=== PATIENT | female | born 1990 | race Caucasian/White ===

== ENCOUNTER 2017-06-04 03:45 | Inpatient (IN) | payer BC ==
[2017-06-04] MEDS ORDERED: Lidocaine 1% 50 ML MDV INJECT PRN (05:01)
[2017-06-04] MEDS ORDERED: Sodium Chloride 0.9% 2.5 ML Syringe FLUSH PRN (05:01)
[2017-06-04] MEDS ORDERED: Carboprost Tromethamine 250 MCG/1 ML Amp IM PRN (05:01)
[2017-06-04] MEDS ORDERED: Methylergonovine 0.2 MG/1 ML Amp IM PRN (05:01)
[2017-06-04] MEDS ORDERED: Butorphanol 1 MG/ML SDV IVPUSH PRN (05:01)
[2017-06-04] MEDS ORDERED: Water For Irrigation,Sterile 1,000 ML Container IRR PRN (05:01)
[2017-06-04] MEDS ORDERED: Sodium Chloride 0.9% 10 ML Syringe FLUSH PRN (05:01)
[2017-06-04] MEDS ORDERED: Nalbuphine 10 MG/1 ML Vial IVPUSH PRN (05:01)
[2017-06-04] MEDS ORDERED: Misoprostol 200 MCG Tab PO PRN (05:01)
[2017-06-04] MEDS ORDERED: Oxytocin/0.9 % Sodium Chloride 30 UNIT/500 ML BAG IV SCH ×2 (05:15→07:30)
[2017-06-04] MEDS ORDERED: Terbutaline 1 MG/ML SDV SUBCUT PRN (07:25)
[2017-06-04] MEDS: Lactated Ringers 1,000 ML IV SCH ×4 (08:00→18:50)
[2017-06-04] MEDS ORDERED: Oxytocin/Normal Saline 30 UNIT/500 ML BAG ONE ×2 (08:01→23:49)
--- NOTE | 2017-06-04 14:58 | PCM.PREANE ---
Preanesthetic Assessment - Anesthesia/Transfusion/Family Hx Anesthesia History: No Prior Anesthesia Transfusion History: No Prior Transfusion(s) - Review of Systems General: No Symptoms Pulmonary: No Symptoms Cardiovascular: No Symptoms Gastrointestinal: No Symptoms Neurological: No Symptoms Other: Reports: None - Physical Assessment Height: 5 ft 3 in Weight: 71.214 kg ASA Class: 2 Mental Status: Alert & Oriented x3 Airway Class: Mallampati = 2 Dentition: Reports: Normal Dentition Thyro-Mental Finger Breadths: 3 Mouth Opening Finger Breadths: 3 ROM/Head Extension: Full Lungs: Clear to Auscultation, Normal Respiratory Effort Cardiovascular: Regular Rate, Regular Rhythm - Lab Values: Laboratory Last Values WBC 12.94 K/uL (4.0-11.0) H 06/04/17 05:13 RBC 4.09 M/uL (4.30-5.90) L 06/04/17 05:13 Hgb 13.0 g/dL (12.0-16.0) 06/04/17 05:13 Hct 37.9 % (36.0-46.0) 06/04/17 05:13 MCV 92.7 fL (80.0-98.0) 06/04/17 05:13 MCH 31.8 pg (27.0-32.0) 06/04/17 05:13 MCHC 34.3 g/dL (31.0-37.0) 06/04/17 05:13 RDW Std Deviation 49.0 fl (28.0-62.0) 06/04/17 05:13 RDW Coeff of Dianna 15 % (11.0-15.0) 06/04/17 05:13 Plt Count 182 K/uL (150-400) 06/04/17 05:13 MPV 11.10 fL (7.40-12.00) 06/04/17 05:13 Nucleated RBC % 0.0 /100WBC 06/04/17 05:13 Nucleated RBCs # 0 K/uL 06/04/17 05:13 Blood Type O POSITIVE 06/04/17 05:13 Antibody Screen NEGATIVE 06/04/17 05:13 - Allergies Allergies/Adverse Reactions: Allergies Allergy/AdvReac Type Severity Reaction Status Date / Time No Known Allergies Allergy Verified 06/04/17 05:00 - Acknowledgements Anesthesia Type Planned: Epidural Pt an Appropriate Candidate for the Planned Anesthesia: Yes Alternatives and Risks of Anesthesia Discussed w Pt/Guardian: Yes Pt/Guardian Understands and Agrees with Anesthesia Plan: Yes PreAnesthesia Questionnaire - Past Health History Medical/Surgical History: Denies Medical/Surgical History HEENT History: Reports: None Cardiovascular History: Reports: None Respiratory History: Reports: None Gastrointestinal History: Reports: GERD Genitourinary History: Reports: None IT RISK ADVISOR History: Reports: : 1 Para: 0 LMP (Approximate): Musculoskeletal History: Reports: None Neurological History: Reports: None Psychiatric History: Reports: None Endocrine/Metabolic History: Reports: None Hematologic History: Reports: None Immunologic History: Reports: None Oncologic (Cancer) History: Reports: None Dermatologic History: Reports: None - Infectious Disease History Infectious Disease History: Reports: None - SUBSTANCE USE Smoking Status *Q: Never Smoker Second Hand Smoke Exposure: No Recreational Drug Use History: No - CURRENT (IN HOUSE) MEDS Current Meds: Current Medications Butorphanol Tartrate (Stadol) 1 mg IVPUSH ASDIRECTED PRN PRN Reason: Pain Carboprost Tromethamine (Hemabate Ds) 250 mcg IM ASDIRECTED PRN PRN Reason: Post Hemorrhage Lactated Ringer's (Ringers, Lactated) 1,000 mls @ 150 mls/hr IV ASDIRECTED CUATE Last Admin: 06/04/17 08:00 Dose: 150 mls/hr Oxytocin/Sodium Chloride (Oxytocin 30 Unit/500 Ml-Ns) 30 unit in 500 mls @ 999 mls/hr IV ASDIRECTED CUATE Oxytocin/Sodium Chloride (Oxytocin 30 Unit/500 Ml-Ns) 30 unit in 500 mls @ 2 mls/hr IV TITRATE CUATE; 2 MUNITS/MIN PRN Reason: Protocol Last Titration: 06/04/17 13:50 Dose: 20 munits/min, 20 mls/hr Lidocaine HCl (Xylocaine 1%) 50 ml INJECT .ONCE PRN PRN Reason: Laceration repair Methylergonovine Maleate (Methergine) 0.2 mg IM ASDIRECTED PRN PRN Reason: Post Hemorrhage Misoprostol (Cytotec) 200 mcg PO .ONCE PRN PRN Reason: Post Hemorrhage Nalbuphine HCl (Nubain) 10 mg IVPUSH ASDIRECTED PRN PRN Reason: Pain (severe 7-10) Sodium Chloride (Saline Flush) 10 ml FLUSH ASDIRECTED PRN PRN Reason: Keep Vein Open Sodium Chloride (Saline Flush) 2.5 ml FLUSH ASDIRECTED PRN PRN Reason: Keep Vein Open Sterile Water (Sterile Water For Irrigation) 1,000 ml IRR ASDIRECTED PRN PRN Reason: delivery Terbutaline Sulfate (Brethine) 0.25 mg SUBCUT ASDIRECTED PRN PRN Reason: Tacysystole Discontinued Medications Oxytocin/Sodium Chloride (Pitocin In Ns 30 Unit/500 Ml) Confirm Administered Dose 30 unit in 500 mls @ as directed .ROUTE .[facility]-MED ONE Stop: 06/04/17 08:02
[2017-06-04] MEDS ORDERED: fentaNYL 100 MCG/2 ML SDV ONE (15:46)
[2017-06-04] MEDS ORDERED: Ropivacaine HCl/PF 100 ML ONE (15:46)
[2017-06-05] MEDS ORDERED: Ropivacaine HCl/PF 100 ML ONE (01:30)
[2017-06-05] MEDS ORDERED: Oxytocin/Normal Saline 30 UNIT/500 ML BAG ONE (03:29)
[2017-06-05] MEDS ORDERED: Bisacodyl 10 MG Supp RECTAL PRN (04:05)
[2017-06-05] MEDS ORDERED: Lanolin 100% Cream 7 GM Tube TOP PRN (04:05)
[2017-06-05] MEDS ORDERED: Witch Hazel Medicated Pads 40/Jar TOP PRN (04:05)
[2017-06-05] MEDS ORDERED: Benzocaine/Menthol 20%-0.5% Spray 78 GM Cannister TOP PRN (04:05)
[2017-06-05] MEDS ORDERED: Acetaminophen 500 MG Tab PO PRN (04:05)
[2017-06-05] MEDS ORDERED: Methylergonovine 0.2 MG/1 ML Amp IM PRN (04:24)
[2017-06-05] MEDS ORDERED: Methylergonovine 0.2 MG/1 ML Amp ONE (04:24)
--- NOTE | 2017-06-05 05:00 | OR ---
SURGEON: Radha Pardo M.D. DATE OF PROCEDURE: 06/05/2017 PREOPERATIVE DIAGNOSIS: 39 and 1/7th weeks intrauterine , premature rupture of membranes with induction of labor, abnormal heart tones. POSTOPERATIVE DIAGNOSIS: 39 and 1/7th weeks intrauterine , premature rupture of membranes with induction of labor, abnormal heart tones. PROCEDURE: Vacuum assisted vaginal delivery after Pitocin induction of labor and repair of second-degree laceration. ANESTHESIA: Epidural. ESTIMATED BLOOD LOSS: Less than 300 mL. FINDINGS: Live born male, score 9 and 9, weighing 3420 g. Placenta delivered spontaneously. [place] intact with 3 vessels. Upon inspection of the pelvis and perineum, there were no periurethral, vaginal sidewall, cervical, or rectal lacerations. There was a second-degree perineal laceration that was repaired using a running lock suture of 0 Polysorb. A 2-0 Caprosyn for the vaginal mucosa, a deep running suture of the same on the perineum and a subcuticular suture of the same for the skin. Final sponge, needle, and instrument counts were reported as correct. BRIEF HISTORY: This is a 27-year-old female, she is G1, P0. She presents at 39 weeks' gestation with premature rupture of membranes, 2 cm dilated, 50% effaced. She was started on Pitocin. She remained afebrile throughout labor. Approximately 12 hours after starting the Pitocin, she did progress into labor, she had through this time period received an epidural. Overall, she had category 1 heart tones with some variable decelerations. As labor progressed beyond 5 cm, she began to have more variable decelerations, therefore an intrauterine pressure catheter was placed and amnioinfusion was performed with primarily category 1, but episodes of category 2 heart tones throughout labor. She progressed to complete. DESCRIPTION OF PROCEDURE: With the patient in dorsal lithotomy position, the patient pushed over 2-1/2 hour time period to a 4+ station. At this time, she developed deep decelerations with full recovery following contraction. After 20 minutes of this, I did recommend proceeding with a vacuum assisted vaginal delivery. The fetus was in the right occiput anterior position. She did have a gynecoid pelvis. The bladder was drained. Estimated weight preoperatively was 3300 g. Risks of the vacuum were discussed including risk of cephalhematoma, intracranial hemorrhage, and scalp laceration. Understanding all these risks, she does desire to proceed. Therefore, the vacuum was placed 2 cm anterior to the posterior fontanelle in the midsagittal line, and with one contraction and no pop offs, the head was delivered over the perineum with support. The vacuum was removed. There were subsequent delivery of the infant's shoulders and body without any difficulty. The infant did not have a nuchal cord. It did have a cord behind the neck, anterior to the shoulders. The infant was handed to the mother in the presence of the nurse attending delivery. The was a liveborn male, score 9 and 9, weighing 3420 g. After the cord had ceased to pulsate, it was doubly clamped and cut. Cord blood was collected for cord ABGs as well as routine cord blood sampling. The Pitocin was initiated after delivery of the infant to assist with delivery of the placenta which was delivered spontaneously. [place] intact with 3 vessels. Upon inspection of the pelvis and perineum, there were no periurethral, vaginal sidewall, cervical, or rectal lacerations. There was a second-degree perineal laceration that was repaired with a running lock suture of 2-0 Caprosyn for the vaginal mucosa and a deep running suture of the same for the perineum. A subcuticular suture of the same for the skin. Final sponge, needle, and instrument counts were reported as correct. There were no known complications. and mother remained in LDRP in good condition. DEBBIE BRADLEY /[id number]
[2017-06-05] MEDS: oxyCODONE 5 MG Tab PO PRN ×2 (07:45→15:50)
--- NOTE | 2017-06-05 09:16 | PCM48HPAN ---
Post Anesthesia Note - EVALUATION WITHIN 48HRS OF ANESTHETIC Vital Signs in Normal Range: Yes Patient Participated in Evaluation: Yes Respiratory Function Stable: Yes Airway Patent: Yes Cardiovascular Function Stable: Yes Hydration Status Stable: Yes Pain Control Satisfactory: Yes Nausea and Vomiting Control Satisfactory: Yes Mental Status Recovered: Yes
[2017-06-05] MEDS: Ibuprofen 800 MG Tab PO PRN (15:49)
[2017-06-05] MEDS: Docusate Sodium 100 MG Cap PO PRN (21:07)
--- NOTE | 2017-06-06 08:16 | PCM.PNPP ---
- General Info Date of Service: 06/06/17 Functional Status: Reports: Pain Controlled, Tolerating Diet, Ambulating - Review of Systems General: Reports: No Symptoms HEENT: Reports: No Symptoms Pulmonary: Reports: No Symptoms Cardiovascular: Reports: No Symptoms Gastrointestinal: Reports: No Symptoms Genitourinary: Reports: No Symptoms Musculoskeletal: Reports: No Symptoms Skin: Reports: No Symptoms Neurological: Reports: No Symptoms Psychiatric: Reports: No Symptoms - Patient Data Vital Signs - Most Recent: Last Vital Signs Temp 36.8 C 06/06/17 00:25 Pulse 98 06/06/17 00:25 Resp 16 06/06/17 00:25 BP 129/75 06/06/17 00:25 Pulse Ox 95 06/06/17 00:25 Weight - Most Recent: 71.214 kg Lab Results - Last 24 Hours: Laboratory Results - last 24 hr 06/06/17 Range/Units 05:42 Hgb 9.9 L (12.0-16.0) g/dL Hct 29.6 L (36.0-46.0) % Med Orders - Current: Current Medications Acetaminophen (Tylenol Extra Strength) 1,000 mg PO Q4H PRN PRN Reason: Pain Last Admin: 06/05/17 07:47 Dose: 1,000 mg Benzocaine/Menthol (Dermoplast Pain Relief 20%-0.5% [place]) 78 gm TOP ASDIRECTED PRN PRN Reason: Perineal Comfort Measure Last Admin: 06/05/17 05:39 Dose: 1 canister Bisacodyl (Dulcolax) 10 mg RECTAL .ONCE PRN PRN Reason: Constipation Docusate Sodium (Colace) 100 mg PO BID PRN PRN Reason: Constipation Last Admin: 06/05/17 21:07 Dose: 100 mg Emollient Ointment (Lansinoh Hpa) 0 gm TOP ASDIRECTED PRN PRN Reason: Sore Nipples Ibuprofen (Motrin) 800 mg PO Q6H PRN PRN Reason: Pain Last Admin: 06/05/17 15:49 Dose: 800 mg Methylergonovine Maleate (Methergine) 0.2 mg IM Q4H PRN PRN Reason: Bleeding Oxycodone HCl (Oxycodone) 5 mg PO Q2H PRN PRN Reason: Pain Last Admin: 06/05/17 15:50 Dose: 5 mg Witch Juanita (Tucks) 1 pad TOP ASDIRECTED PRN PRN Reason: comfort care Last Admin: 06/05/17 05:40 Dose: 1 tub Discontinued Medications Butorphanol Tartrate (Stadol) 1 mg IVPUSH ASDIRECTED PRN PRN Reason: Pain Carboprost Tromethamine (Hemabate Ds) 250 mcg IM ASDIRECTED PRN PRN Reason: Post Hemorrhage Fentanyl (Sublimaze) Confirm Administered Dose 100 mcg .ROUTE .STK-MED ONE Stop: 06/04/17 15:47 Lactated Ringer's (Ringers, Lactated) 1,000 mls @ 150 mls/hr IV ASDIRECTED CUATE Last Admin: 06/04/17 18:50 Dose: 150 mls/hr Oxytocin/Sodium Chloride (Oxytocin 30 Unit/500 Ml-Ns) 30 unit in 500 mls @ 999 mls/hr IV ASDIRECTED CUATE Oxytocin/Sodium Chloride (Oxytocin 30 Unit/500 Ml-Ns) 30 unit in 500 mls @ 2 mls/hr IV TITRATE CUATE; 2 MUNITS/MIN PRN Reason: Protocol Last Titration: 06/04/17 22:46 Dose: 10 munits/min, 10 mls/hr Oxytocin/Sodium Chloride (Pitocin In Ns 30 Unit/500 Ml) Confirm Administered Dose 30 unit in 500 mls @ as directed .ROUTE .STK-MED ONE Stop: 06/04/17 08:02 Last Admin: 06/05/17 04:00 Dose: 30 unit Ropivacaine (Naropin 0.2%) Confirm Administered Dose 100 mls @ as directed .ROUTE .STK-MED ONE Stop: 06/04/17 15:47 Oxytocin/Sodium Chloride (Pitocin In Ns 30 Unit/500 Ml) Confirm Administered Dose 30 unit in 500 mls @ as directed .ROUTE .STK-MED ONE Stop: 06/04/17 23:50 Ropivacaine (Naropin 0.2%) Confirm Administered Dose 100 mls @ as directed .ROUTE .ST-MED ONE Stop: 06/05/17 01:31 Oxytocin/Sodium Chloride (Pitocin In Ns 30 Unit/500 Ml) Confirm Administered Dose 30 unit in 500 mls @ as directed .ROUTE .STK-MED ONE Stop: 06/05/17 03:30 Lidocaine HCl (Xylocaine 1%) 50 ml INJECT .ONCE PRN PRN Reason: Laceration repair Methylergonovine Maleate (Methergine) 0.2 mg IM ASDIRECTED PRN PRN Reason: Post Hemorrhage Last Admin: 06/05/17 04:28 Dose: 0.2 mg Methylergonovine Maleate (Methergine) Confirm Administered Dose 0.2 mg .ROUTE .STK-MED ONE Stop: 06/05/17 04:25 Last Admin: 06/05/17 11:54 Dose: Not Given Misoprostol (Cytotec) 200 mcg PO .ONCE PRN PRN Reason: Post Hemorrhage Nalbuphine HCl (Nubain) 10 mg IVPUSH ASDIRECTED PRN PRN Reason: Pain (severe 7-10) Sodium Chloride (Saline Flush) 10 ml FLUSH ASDIRECTED PRN PRN Reason: Keep Vein Open Sodium Chloride (Saline Flush) 2.5 ml FLUSH ASDIRECTED PRN PRN Reason: Keep Vein Open Sterile Water (Sterile Water For Irrigation) 1,000 ml IRR ASDIRECTED PRN PRN Reason: delivery Terbutaline Sulfate (Brethine) 0.25 mg SUBCUT ASDIRECTED PRN PRN Reason: Tacysystole - Interaction Infant Disposition, : [place] at Bedside Interaction: Holding Infant Feeding: Bottle Fed Support Person: - Recovery Exam Fundal Tone: Firm Fundal Level: At Umbilicus Fundal Placement: Midline Lochia Amount: Scant Lochia Color: Rubra/Red Perineum Description: Intact, Minimal Bruising/Swelling Episiotomy/Laceration: Approximated Bladder Status: Nonpalpable Urinary Elimination: Voided - Exam General: Alert, Oriented HEENT: Pupils Equal Neck: Supple Lungs: Normal Respiratory Effort GI/Abdominal Exam: Soft, Non-Tender, No Organomegaly, No Distention Extremities: Normal Inspection, Normal Range of Motion. No: No Pedal Edema (1+ equal bilaterally.) Skin: Warm, Dry, Intact Wound/Incisions: Healing Well Neurological: No New Focal Deficit Psy/Mental Status: Alert, Normal Affect, Normal Mood - Problem List & Annotations (1) PROM (premature rupture of membranes) SNOMED Code(s): 06289718 Code(s): O42.90 - YNES ROM, 7TH0 BETW RUPT & ONST LABR, UNSP WEEKS OF GEST Status: Acute Current Visit: Yes (2) Vaginal delivery SNOMED Code(s): 549082565 Code(s): O80 - ENCOUNTER FOR FULL-TERM UNCOMPLICATED DELIVERY Status: Acute Current Visit: Yes - Problem List Review Problem List Initiated/Reviewed/Updated: Yes - My Orders Last 24 Hours: My Active Orders 06/06/17 08:13 Ready for Discharge [RC] PER UNIT ROUTINE - Assessment Assessment:: PPD # 1 after wtih induction for PROM, stable, states mood is normal (just tired) - Plan Plan:: Discharge to home today. Discharge instructions reviewed, continue prenatals until completed for for one month. Bottle feeding.
[2017-06-06] MEDS: Docusate Sodium 100 MG Cap PO PRN (08:40)
[2017-06-06] MEDS: Ibuprofen 800 MG Tab PO PRN (08:40)
[2017-06-06] MEDS: oxyCODONE 5 MG Tab PO PRN (08:44)
[2017-06-06 09:44] VITALS: BP 109/59
== END 2017-06-06 10:45 | disposition home or self-care (01) | DRG 560 ==
LOC: MW.OBCHECK 03:45 → MW.OB 03:48 → MW.OBCHECK 05:01 → MW.OB 05:01 → OBSVTOIN 06-05 03:05
PROVIDERS: ADMIT Obstetrics & Gynecology; ATTEND Obstetrics & Gynecology
PROC: 10D07Z6 Extraction of Products of Conception, Vacuum, Via Natural or Artificial Opening (ICD-10-PCS; principal; 2017-06-05)
PROC: 3E033VJ Introduction of Other Hormone into Peripheral Vein, Percutaneous Approach (ICD-10-PCS; 2017-06-05)
PROC: 0KQM0ZZ Repair Perineum Muscle, Open Approach (ICD-10-PCS; 2017-06-05)
DX: O42.02 Full-term premature rupture of membranes, onset of labor within 24 hours of rupture (principal); O70.1 Second degree perineal laceration during delivery; Z3A.39 39 weeks gestation of pregnancy; Z37.0 Single live birth
CPT/HCPCS: 01967; 36415; 51701; 51702; 59025; 59409; 85014; 85018; 85027; 86850; 86900; 86901; 87070; 88307; A9270-GY; J2210; J2590; J2795; J3010; J7120

== ENCOUNTER 2017-07-08 08:29 | Day surgery (SDC) | payer BC ==
[~2017-07-08 08:29] MED LIST: Azithromycin 500 MG in Sodium Chloride 0.9% 250 ML IV ONE; Lactated Ringers 1,000 ML IV SCH
[2017-07-08] MEDS ORDERED: Ondansetron 4 MG/2 ML SDV ONE (08:41)
[2017-07-08] MEDS ORDERED: Midazolam 1 MG/ML 2 ML SDV ONE (08:41)
[2017-07-08] MEDS ORDERED: fentaNYL 100 MCG/2 ML SDV ONE (08:41)
[2017-07-08] MEDS ORDERED: Lidocaine 2% 5 ML SDV ONE (08:41)
[2017-07-08] MEDS ORDERED: Propofol 200 MG/20 ML SDV ONE (08:41)
[2017-07-08] MEDS ORDERED: Furosemide 40 MG/4 ML VIAL ONE (09:01)
--- NOTE | 2017-07-08 10:52 | PCM.PREANE ---
Preanesthetic Assessment - Anesthesia/Transfusion/Family Hx Anesthesia History: No Prior Anesthesia Family History of Anesthesia Reaction: No Transfusion History: No Prior Transfusion(s) Intubation History: Unknown - Review of Systems General: No Symptoms Pulmonary: No Symptoms Cardiovascular: No Symptoms Gastrointestinal: No Symptoms Neurological: No Symptoms Other: Reports: None - Physical Assessment NPO Status Date: 07/07/17 NPO Status Time: 19:00 O2 Sat by Pulse Oximetry: 95 Respiratory Rate: 16 Vital Signs: Last Vital Signs Temp 36.7 C 07/08/17 09:02 Pulse 71 07/08/17 09:02 Resp 16 07/08/17 09:02 BP 111/67 07/08/17 09:02 Pulse Ox 95 07/08/17 09:02 Height: 1.61 m Weight: 60.328 kg ASA Class: 1 Mental Status: Alert & Oriented x3 Airway Class: Mallampati = 2 Dentition: Reports: Normal Dentition Thyro-Mental Finger Breadths: 2 Mouth Opening Finger Breadths: 2 ROM/Head Extension: Full Lungs: Clear to Auscultation, Normal Respiratory Effort Cardiovascular: Regular Rate, Regular Rhythm - Lab Values: Laboratory Last Values WBC 7.98 K/uL (4.0-11.0) 07/08/17 09:09 RBC 4.86 M/uL (4.30-5.90) 07/08/17 09:09 Hgb 15.2 g/dL (12.0-16.0) 07/08/17 09:09 Hct 44.5 % (36.0-46.0) 07/08/17 09:09 MCV 91.6 fL (80.0-98.0) 07/08/17 09:09 MCH 31.3 pg (27.0-32.0) 07/08/17 09:09 MCHC 34.2 g/dL (31.0-37.0) 07/08/17 09:09 RDW Std Deviation 43.0 fl (28.0-62.0) 07/08/17 09:09 RDW Coeff of Dianna 13 % (11.0-15.0) 07/08/17 09:09 Plt Count 310 K/uL (150-400) 07/08/17 09:09 MPV 10.20 fL (7.40-12.00) 07/08/17 09:09 Nucleated RBC % 0.0 /100WBC 07/08/17 09:09 Nucleated RBCs # 0 K/uL 07/08/17 09:09 - Allergies Allergies/Adverse Reactions: Allergies Allergy/AdvReac Type Severity Reaction Status Date / Time No Known Allergies Allergy Verified 07/07/17 17:20 - Blood Blood Available: No - Anesthesia Plan Pre-Op Medication Ordered: None - Acknowledgements Anesthesia Type Planned: General Anesthesia Pt an Appropriate Candidate for the Planned Anesthesia: Yes Alternatives and Risks of Anesthesia Discussed w Pt/Guardian: Yes Pt/Guardian Understands and Agrees with Anesthesia Plan: Yes PreAnesthesia Questionnaire - Past Health History Medical/Surgical History: Denies Medical/Surgical History HEENT History: Reports: None Other HEENT History: wears glasses/contacts Cardiovascular History: Reports: None Respiratory History: Reports: None Gastrointestinal History: Reports: Other (See Below) Other Gastrointestinal History: had heartburn during Genitourinary History: Reports: None CARDIOLOGY FELLOW History: Reports: Other OB/BYN History: is 6 weeks post- Musculoskeletal History: Reports: None Neurological History: Reports: None Psychiatric History: Reports: None Endocrine/Metabolic History: Reports: None Hematologic History: Reports: None Immunologic History: Reports: None Oncologic (Cancer) History: Reports: None Dermatologic History: Reports: None - Infectious Disease History Infectious Disease History: Reports: None - Past Surgical History HEENT Surgical History: Reports: Oral Surgery Other HEENT Surgeries/Procedures: wisdom teeth - SUBSTANCE USE Smoking Status *Q: Never Smoker Second Hand Smoke Exposure: No Recreational Drug Use History: No - HOME MEDS Home Medications: Home Meds . [No Known Home Meds] 07/07/17 [History] - CURRENT (IN HOUSE) MEDS Current Meds: Current Medications Lactated Ringer's (Ringers, Lactated) 1,000 mls @ 125 mls/hr IV ASDIRECTED CUATE Last Admin: 07/08/17 09:03 Dose: 125 mls/hr Discontinued Medications Fentanyl (Sublimaze) Confirm Administered Dose 100 mcg .ROUTE .STK-MED ONE Stop: 07/08/17 08:42 Furosemide (Lasix) Confirm Administered Dose 40 mg .ROUTE .STK-MED ONE Stop: 07/08/17 09:02 Azithromycin 500 mg/ Sodium (Chloride) 250 mls @ 250 mls/hr IV ONETIME ONE Stop: 07/08/17 08:19 Last Admin: 07/08/17 10:14 Dose: 250 mls/hr Lidocaine (Xylocaine-Mpf 2%) Confirm Administered Dose 5 ml .ROUTE .STK-MED ONE Stop: 07/08/17 08:42 Midazolam HCl (Versed 1 Mg/Ml) Confirm Administered Dose 2 mg .ROUTE .STK-MED ONE Stop: 07/08/17 08:42 Ondansetron HCl (Zofran) Confirm Administered Dose 4 mg .ROUTE .STK-MED ONE Stop: 07/08/17 08:42 Propofol (Diprivan 20 Ml) Confirm Administered Dose 200 mg .ROUTE .STK-MED ONE Stop: 07/08/17 08:42
[2017-07-08] MEDS ORDERED: Ketorolac 30 MG/ML SDV ONE (11:28)
--- NOTE | 2017-07-08 11:37 | PCM.OPNOTE ---
- General Post-Op/Procedure Note Date of Surgery/Procedure: 07/08/17 Operative Procedure(s): suctions dilatation and curettage under ultrasound guidance Findings: uterus anteverted sounded to 9 cm. At the beginning of the procedure there was and echogenic lesion 12 mm in thickness, following the procedure endometrial thickness was 3.2 mm without any apparent tissue. Pre Op Diagnosis: retained products of conception Post-Op Diagnosis: Same Anesthesia Technique: General ET Tube Primary Surgeon: Radha Pardo Anesthesia Provider: Shaan Munoz Assembler Lay Ups: Janice Hurst Pathology: retained products of conception Fluid Replacement, Intraop: 1,200 EBL in mLs: 20 Complications: None Known Condition: Good
[2017-07-08 12:56] VITALS: BP 120/78
--- NOTE | 2017-07-08 15:51 | OR ---
SURGEON: Radha Pardo M.D. DATE OF PROCEDURE: 07/08/2017 PREOPERATIVE DIAGNOSIS: Retained placental fragment. POSTOPERATIVE DIAGNOSIS: Retained placental fragment. PROCEDURES: Suction, dilatation, and curettage under ultrasound guidance. ANESTHESIA: General endotracheal. FLUIDS: 1200 mL crystalloid. ESTIMATED BLOOD LOSS: Less than 20 mL. FINDINGS: Preoperatively ultrasound showed an echogenic 12 mm lesion at the uterine fundus. Postoperatively, there was no lesion or material within the endometrium and an endometrial thickness was 3.2 mm. The uterus was anteverted sounded to 9 cm. COMPLICATIONS: None known. DISPOSITION: Stable to recovery. BRIEF HISTORY: This is a 27-year-old female, she is 4 weeks from a vacuum-assisted vaginal delivery. She presented to clinic with some irregular bleeding that had been persistent and ultrasound revealed an echogenic area 12 mm in thickness without significant Doppler flow, however, due to her bleeding I did recommend proceeding with a suction D and C, and risks were discussed including bleeding, infection, injury to surrounding organs if uterine perforation were to occur, risk of Asherman's syndrome. Understanding all of these risks, she does desire to proceed. DESCRIPTION OF PROCEDURE: With the patient in dorsal lithotomy position under adequate general endotracheal anesthesia, the perineum and vagina were prepped with Betadine and draped in usual fashion for vaginal surgery. The technical maintenance technician was present. The ultrasound abdominal probe was sterilely draped and utilized with findings as noted above. During the procedure ultrasound guidance was utilized. The speculum was placed into the vagina. The cervix was grasped with an Allis clamp. The uterus sounded to 9 cm. The cervix was dilated to a 10 mm Hegar dilator. A 10 mm straight suction cannula was placed to the uterine fundus and with the vacuum on was retracted once and the tissue was removed. Upon ultrasound there was no further tissue remaining. One additional pass was taken. No further tissue was obtained and there was no bleeding, therefore all of the instruments were removed from the vagina. Final sponge, needle, instrument counts were reported as correct. There were no known complications. The patient was transferred to recovery in good condition. DEBBIE / MIRNA /[id number]
== END 2017-07-08 13:40 | disposition home or self-care (01) ==
LOC: MW.SDS 08:29
PROVIDERS: ATTEND Obstetrics & Gynecology
DX: O73.1 Retained portions of placenta and membranes, without hemorrhage (principal); O90.6 Postpartum mood disturbance; E28.2 Polycystic ovarian syndrome; Z79.899 Other long term (current) drug therapy; Z98.818 Other dental procedure status
CPT/HCPCS: 36415; 59160; 76998; 85027; J0456; J1885; J2250; J2405; J3010; J7050; J7120; 00940; 88305; J1940; J2704

== ENCOUNTER 2020-01-23 04:52 | Inpatient (IN) | payer BC, OTHER ==
[2020-01-23] MEDS ORDERED: Carboprost Tromethamine 250 MCG/1 ML Amp IM PRN (05:41)
[2020-01-23] MEDS ORDERED: Butorphanol 1 MG/ML SDV IVPUSH PRN (05:41)
[2020-01-23] MEDS ORDERED: Ondansetron 4 MG/2 ML SDV IVPUSH PRN (05:41)
[2020-01-23] MEDS ORDERED: Water For Irrigation,Sterile 1,000 ML Container IRR PRN (05:41)
[2020-01-23] MEDS ORDERED: Nalbuphine 10 MG/1 ML Vial IVPUSH PRN (05:41)
[2020-01-23] MEDS ORDERED: Terbutaline 1 MG/ML SDV SUBCUT PRN (05:41)
[2020-01-23] MEDS ORDERED: Tranexamic Acid 1,000 MG in Sodium Chloride 0.9% 100 ML IV PRN ×2 (05:41→18:52)
[2020-01-23] MEDS ORDERED: Misoprostol 200 MCG Tab PO PRN (05:41)
[2020-01-23] MEDS ORDERED: Lidocaine 1% 50 ML MDV INJECT PRN (05:41)
[2020-01-23] MEDS ORDERED: Sodium Chloride 0.9% 10 ML SDV IV PRN (05:41)
[2020-01-23] MEDS ORDERED: Sodium Chloride 0.9% 2.5 ML Syringe FLUSH PRN (05:41)
[2020-01-23] MEDS ORDERED: Methylergonovine 0.2 MG/1 ML Amp IM PRN (05:41)
[2020-01-23] MEDS ORDERED: Sodium Chloride 0.9% 10 ML Syringe FLUSH PRN (05:41)
[2020-01-23] MEDS ORDERED: Oxytocin/0.9 % Sodium Chloride 30 UNIT/500 ML BAG IV SCH ×2 (05:45)
[2020-01-23] MEDS ORDERED: Misoprostol 25 MCG (1/4 of 100 MCG) Tab VAG PRN ×2 (06:00→10:00)
[2020-01-23] MEDS: Lactated Ringers 1,000 ML IV SCH ×3 (06:10→16:40)
[2020-01-23] MEDS ORDERED: Bupivicaine/fentaNYL/NS 250 ML ONE (14:12)
--- NOTE | 2020-01-23 14:52 | PCM.PREANE ---
Preanesthetic Assessment - Procedure Proposed Procedure: Continuous Labor Epidural - Anesthesia/Transfusion/Family Hx Anesthesia History: Prior Anesthesia Without Reaction Transfusion History: No Prior Transfusion(s) Intubation History: Unknown - Review of Systems General: No Symptoms Pulmonary: No Symptoms Cardiovascular: No Symptoms Gastrointestinal: No Symptoms Neurological: No Symptoms Other: Reports: None - Physical Assessment Height: 5 ft 3 in Weight: 73.028 kg ASA Class: 2 Mental Status: Alert & Oriented x3 Airway Class: Mallampati = 2 Dentition: Reports: Normal Dentition Thyro-Mental Finger Breadths: 3 Mouth Opening Finger Breadths: 3 ROM/Head Extension: Full Lungs: Clear to Auscultation, Normal Respiratory Effort Cardiovascular: Regular Rate, Regular Rhythm - Lab Values: Laboratory Last Values WBC 10.63 K/uL (4.0-11.0) 01/23/20 05:15 RBC 4.16 M/uL (4.30-5.90) L 01/23/20 05:15 Hgb 13.0 g/dL (12.0-16.0) 01/23/20 05:15 Hct 39.2 % (36.0-46.0) 01/23/20 05:15 MCV 94.2 fL (80.0-98.0) 01/23/20 05:15 MCH 31.3 pg (27.0-32.0) 01/23/20 05:15 MCHC 33.2 g/dL (31.0-37.0) 01/23/20 05:15 RDW Std Deviation 52.0 fl (28.0-62.0) 01/23/20 05:15 RDW Coeff of Dianna 15 % (11.0-15.0) 01/23/20 05:15 Plt Count 220 K/uL (150-400) 01/23/20 05:15 MPV 11.20 fL (7.40-12.00) 01/23/20 05:15 Nucleated RBC % 0.0 /100WBC 01/23/20 05:15 Nucleated RBCs # 0 K/uL 01/23/20 05:15 Blood Type O POSITIVE 01/23/20 05:15 Antibody Screen NEGATIVE 01/23/20 05:15 - Allergies Allergies/Adverse Reactions: Allergies Allergy/AdvReac Type Severity Reaction Status Date / Time No Known Allergies Allergy Verified 10/23/17 17:20 - Anesthesia Plan Free Text/Narrative:: Continuous Labor Epidural - Acknowledgements Anesthesia Type Planned: Epidural Pt an Appropriate Candidate for the Planned Anesthesia: Yes Alternatives and Risks of Anesthesia Discussed w Pt/Guardian: Yes Pt/Guardian Understands and Agrees with Anesthesia Plan: Yes PreAnesthesia Questionnaire - Past Health History Medical/Surgical History: Denies Medical/Surgical History HEENT History: Reports: None Other HEENT History: wears glasses/contacts Cardiovascular History: Reports: None Respiratory History: Reports: None Gastrointestinal History: Reports: Other (See Below) Other Gastrointestinal History: had heartburn during previous Genitourinary History: Reports: None [employer] History: Reports: : 2 Para: 1 LMP (Approximate): Musculoskeletal History: Reports: None Neurological History: Reports: None Psychiatric History: Reports: Depression, Other (See Below) Other Psychiatric History: post- depression after first child, resolved prior to current . Endocrine/Metabolic History: Reports: None Hematologic History: Reports: None Immunologic History: Reports: None Oncologic (Cancer) History: Reports: None Dermatologic History: Reports: None - Infectious Disease History Infectious Disease History: Reports: Chicken Pox, Shingles - Past Surgical History HEENT Surgical History: Reports: Oral Surgery Other HEENT Surgeries/Procedures: wisdom teeth GI Surgical History: Reports: None Female Surgical History: Reports: D&C, Other (See Below) Other Female Surgeries/Procedures: retained placenta after first - SUBSTANCE USE Smoking Status *Q: Never Smoker Second Hand Smoke Exposure: No Recreational Drug Use History: No - HOME MEDS Home Medications: Home Meds Vits #93/Iron Fum/FA [ Formula Tablet] 1 each PO DAILY [History] - CURRENT (IN HOUSE) MEDS Current Meds: Current Medications Butorphanol Tartrate (Stadol) 1 mg IVPUSH Q1H PRN PRN Reason: Pain Carboprost Tromethamine (Hemabate Ds) 250 mcg IM ASDIRECTED PRN PRN Reason: Post Hemorrhage Lactated Ringer's (Ringers, Lactated) 1,000 mls @ 150 mls/hr IV ASDIRECTED CUATE Last Infusion: 01/23/20 14:48 Dose: 150 mls/hr Oxytocin/Sodium Chloride (Oxytocin 30 Unit/500 Ml-Ns) 30 unit in 500 mls @ 999 mls/hr IV TITRATE CUATE Oxytocin/Sodium Chloride (Oxytocin 30 Unit/500 Ml-Ns) 30 unit in 500 mls @ 2 mls/hr IV TITRATE CUATE; Protocol Last Titration: 01/23/20 12:11 Dose: 6 munits/min, 6 mls/hr Tranexamic Acid 1,000 mg/ (Sodium Chloride) 110 mls @ 660 mls/hr IV ONETIME PRN PRN Reason: Bleeding Lidocaine HCl (Xylocaine 1%) 50 ml INJECT ONETIME PRN PRN Reason: Laceration repair Methylergonovine Maleate (Methergine) 0.2 mg IM ASDIRECTED PRN PRN Reason: Post Hemorrhage Misoprostol (Cytotec) 200 mcg PO ONETIME PRN PRN Reason: Post Hemorrhage Misoprostol (Cytotec) 25 mcg VAG ONETIME PRN PRN Reason: Cervical Ripening Last Admin: 01/23/20 06:22 Dose: 25 mcg Misoprostol (Cytotec) 25 mcg VAG Q4H PRN PRN Reason: Cervical Ripening Nalbuphine HCl (Nubain) 10 mg IVPUSH Q1H PRN PRN Reason: Pain (severe 7-10) Ondansetron HCl (Zofran) 4 mg IVPUSH Q6H PRN PRN Reason: Nausea/Vomiting Sodium Chloride (Saline Flush) 10 ml FLUSH ASDIRECTED PRN PRN Reason: Keep Vein Open Sodium Chloride (Saline Flush) 2.5 ml FLUSH ASDIRECTED PRN PRN Reason: Keep Vein Open Sodium Chloride (Normal Saline) 10 ml IV ASDIRECTED PRN PRN Reason: IV Use Sterile Water (Sterile Water For Irrigation) 1,000 ml IRR ASDIRECTED PRN PRN Reason: delivery Terbutaline Sulfate (Brethine) 0.25 mg SUBCUT ASDIRECTED PRN PRN Reason: Tacysystole Discontinued Medications Fentanyl/Bupivacaine HCl (Fentanyl/Bupivacaine/Ns 2 Mcg-0.125% 250 Ml) Confirm Administered Dose 250 mls @ as directed .ROUTE .STK-MED ONE Stop: 01/23/20 14:13
--- NOTE | 2020-01-23 18:51 | PCM.DEL ---
L & D Note - General Info Date of Service: 01/23/20 Mother's Due Date: 01/30/20 - Delivery Note Labor: Induced by Oxytocin Cervical Ripening Method: Misoprostil Delivery Outcome: Livebirth Infant Delivery Method: Spontaneous Vaginal Delivery-Single Infant Delivery Mode: Spontaneous Presentation: Left Occiput Anterior (MARCI) Nuchal Cord: None Prep: Other Anesthesia Type: Epidural Episiotomy Type: None Laceration: 2nd Degree Suture type: Vicryl Suture size: 3-0 Placenta: Intact, Spontaneous Cord: 2 Vessels Estimated Blood Loss: 300 (given methergine prophylactically) Resuscitation Needed: No : Suctioned Delivery Comments (Free Text/Narrative):: Liveborn female 8/9 weight 3460 - General Info Date of Service: 01/23/20 - Patient Data Weight - Most Recent: 73.028 kg Lab Results Last 24 Hours: Laboratory Results - last 24 hr 01/23/20 01/23/20 Range/Units 05:15 05:15 WBC 10.63 (4.0-11.0) K/uL RBC 4.16 L (4.30-5.90) M/uL Hgb 13.0 (12.0-16.0) g/dL Hct 39.2 (36.0-46.0) % MCV 94.2 (80.0-98.0) fL MCH 31.3 (27.0-32.0) pg MCHC 33.2 (31.0-37.0) g/dL RDW Std Deviation 52.0 (28.0-62.0) fl RDW Coeff of Dianna 15 (11.0-15.0) % Plt Count 220 (150-400) K/uL MPV 11.20 (7.40-12.00) fL Nucleated RBC % 0.0 /100WBC Nucleated RBCs # 0 K/uL Blood Type O POSITIVE Antibody Screen NEGATIVE Med Orders - Current: Current Medications Butorphanol Tartrate (Stadol) 1 mg IVPUSH Q1H PRN PRN Reason: Pain Carboprost Tromethamine (Hemabate Ds) 250 mcg IM ASDIRECTED PRN PRN Reason: Post Hemorrhage Lactated Ringer's (Ringers, Lactated) 1,000 mls @ 150 mls/hr IV ASDIRECTED CUATE Last Admin: 01/23/20 16:40 Dose: 150 mls/hr Oxytocin/Sodium Chloride (Oxytocin 30 Unit/500 Ml-Ns) 30 unit in 500 mls @ 999 mls/hr IV TITRATE CUATE Oxytocin/Sodium Chloride (Oxytocin 30 Unit/500 Ml-Ns) 30 unit in 500 mls @ 2 mls/hr IV TITRATE CUATE; Protocol Last Titration: 01/23/20 18:21 Dose: 2 munits/min, 2 mls/hr Tranexamic Acid 1,000 mg/ (Sodium Chloride) 110 mls @ 660 mls/hr IV ONETIME PRN PRN Reason: Bleeding Lidocaine HCl (Xylocaine 1%) 50 ml INJECT ONETIME PRN PRN Reason: Laceration repair Methylergonovine Maleate (Methergine) 0.2 mg IM ASDIRECTED PRN PRN Reason: Post Hemorrhage Misoprostol (Cytotec) 200 mcg PO ONETIME PRN PRN Reason: Post Hemorrhage Misoprostol (Cytotec) 25 mcg VAG ONETIME PRN PRN Reason: Cervical Ripening Last Admin: 01/23/20 06:22 Dose: 25 mcg Misoprostol (Cytotec) 25 mcg VAG Q4H PRN PRN Reason: Cervical Ripening Nalbuphine HCl (Nubain) 10 mg IVPUSH Q1H PRN PRN Reason: Pain (severe 7-10) Ondansetron HCl (Zofran) 4 mg IVPUSH Q6H PRN PRN Reason: Nausea/Vomiting Sodium Chloride (Saline Flush) 10 ml FLUSH ASDIRECTED PRN PRN Reason: Keep Vein Open Sodium Chloride (Saline Flush) 2.5 ml FLUSH ASDIRECTED PRN PRN Reason: Keep Vein Open Sodium Chloride (Normal Saline) 10 ml IV ASDIRECTED PRN PRN Reason: IV Use Sterile Water (Sterile Water For Irrigation) 1,000 ml IRR ASDIRECTED PRN PRN Reason: delivery Terbutaline Sulfate (Brethine) 0.25 mg SUBCUT ASDIRECTED PRN PRN Reason: Tacysystole Discontinued Medications Fentanyl/Bupivacaine HCl (Fentanyl/Bupivacaine/Ns 2 Mcg-0.125% 250 Ml) Confirm Administered Dose 250 mls @ as directed .ROUTE .[employer]Act[employer] ONE Stop: 01/23/20 14:13 - Problem List & Annotations (1) Vaginal delivery SNOMED Code(s): 881163929 Code(s): O80 - ENCOUNTER FOR FULL-TERM UNCOMPLICATED DELIVERY Status: Acute Current Visit: No - Problem List Review Problem List Initiated/Reviewed/Updated: Yes - My Orders Last 24 Hours: My Active Orders 01/23/20 05:15 RPR (SYPHILIS SERO) W/ RFLX [REF] Routine 01/23/20 05:41 Patient Status [ADT] Routine Bedrest Bathroom Privileges [RC] ASDIRECTED Communication Order [RC] ASDIRECTED Communication Order [RC] ASDIRECTED Communication Order [RC] ASDIRECTED Heart Tones [RC] CONTINUOUS Non Stress Test [RC] PER UNIT ROUTINE May Shower [RC] ASDIRECTED Notify Provider [RC] PRN Notify Provider [RC] PRN Notify Provider [RC] PRN Notify Provider [RC] STAT Oxygen Therapy [RC] ASDIRECTED Peripheral IV Care [RC] PRN Up ad Martha [RC] ASDIRECTED Vaginal Exam [RC] PRN Vital Signs [RC] PER UNIT ROUTINE Butorphanol [Stadol] 1 mg IVPUSH Q1H PRN Carboprost Tromethamine [Hemabate DS] 250 mcg IM ASDIRECTED PRN Lidocaine 1% [Xylocaine 1%] 50 ml INJECT ONETIME PRN Methylergonovine [Methergine] 0.2 mg IM ASDIRECTED PRN Nalbuphine [Nubain] 10 mg IVPUSH Q1H PRN Ondansetron [Zofran] 4 mg IVPUSH Q6H PRN Sodium Chloride 0.9% [Normal Saline] 10 ml IV ASDIRECTED PRN Sodium Chloride 0.9% [Saline Flush] 10 ml FLUSH ASDIRECTED PRN Sodium Chloride 0.9% [Saline Flush] 2.5 ml FLUSH ASDIRECTED PRN Terbutaline [Brethine] 0.25 mg SUBCUT ASDIRECTED PRN Tranexamic Acid [Cyklokapron] 1,000 mg Sodium Chloride 0.9% [Normal Saline] 100 ml IV ONETIME Water For Irrigation,Sterile [Sterile Water for Irrigation] 1,000 ml IRR ASDIRECTED PRN miSOPROStoL [Cytotec] 200 mcg PO ONETIME PRN Scalp Electrode [WOMSER] Per Unit Routine Peripheral IV Insertion Adult [OM.PC] Routine Resuscitation Status Routine 01/23/20 05:45 Lactated Ringers [Ringers, Lactated] 1,000 ml IV ASDIRECTED Oxytocin/0.9 % Sodium Chloride [Oxytocin 30 Unit/500 ML-NS] 30 unit in 500 ml IV TITRATE Oxytocin/0.9 % Sodium Chloride [Oxytocin 30 Unit/500 ML-NS] 30 unit in 500 ml IV TITRATE Medication Administration Instruction [OM.PC] Q3H 01/23/20 06:00 miSOPROStoL [Cytotec] 25 mcg VAG ONETIME PRN 01/23/20 10:00 miSOPROStoL [Cytotec] 25 mcg VAG Q4H PRN 01/23/20 Breakfast Clear Liquid Diet [DIET]
--- NOTE | 2020-01-23 18:51 | PCM.SN.2 ---
- Free Text/Narrative Note: 1750: Called by OB RN to come in on stand by. Per RN, patient had initiated a [employer] epidural bolus and developed shortness of breath and flushing, however, vital signs remained stable throughout. During this event, baby had decels lasting a significant amount of time (See nursing PIP for details). Mom and baby both recovered from incident by the time I got here, however, baby continued to have deep decels with contractions. Dr. Pardo present. Patient delivered without further anesthesia intervention. Patient vital signs stable. APGARs 8 and 9.
[2020-01-23] MEDS ORDERED: Benzocaine/Menthol 20%-0.5% Spray 78 GM Cannister TOP PRN (18:52)
[2020-01-23] MEDS ORDERED: Acetaminophen 500 MG Tab PO PRN ×2 (18:52)
[2020-01-23] MEDS ORDERED: Docusate Sodium 100 MG Cap PO PRN (18:52)
[2020-01-23] MEDS ORDERED: Ibuprofen 400 MG Tab PO PRN (18:52)
[2020-01-23] MEDS ORDERED: Bisacodyl 10 MG Supp RECTAL PRN (18:52)
[2020-01-23] MEDS ORDERED: Lanolin 100% Cream 7 GM Tube TOP PRN (18:52)
[2020-01-23] MEDS: Witch Hazel Medicated Pads 40/Jar TOP PRN (20:59)
[2020-01-23] MEDS: Ibuprofen 800 MG Tab PO PRN (21:00)
--- NOTE | 2020-01-24 09:27 | OR ---
SURGEON: Radha Pardo M.D. DATE OF PROCEDURE: 01/23/2020 PREOPERATIVE DIAGNOSIS: A 39-week intrauterine , single umbilical artery. POSTOPERATIVE DIAGNOSIS: A 39-week intrauterine , single umbilical artery. PROCEDURES: Cytotec and Pitocin induction of labor, artificial rupture of membranes, term spontaneous vaginal delivery, repair of second-degree laceration. PRIMARY SURGEON: Radha Pardo M.D. ANESTHESIA: Epidural. ESTIMATED BLOOD LOSS: Less than 400 mL. FINDINGS: Liveborn female. score of 8 and 9, weighing 3460 g. Placenta spontaneous, Schultze intact, with 2 vessels with small second-degree perineal laceration repaired. COMPLICATIONS: None known. DISPOSITION: Mother and baby are in LDR in good condition. BRIEF HISTORY: This is a 29-year-old female. She is G2, P1-0-0-1. She presents at 39 weeks' gestation for induction of labor due to single umbilical artery. No anomalies were identified on ultrasound examination. She has been followed in the late 3rd trimester with serial biophysical profiles, which have been reassuring. She is group B strep negative. She presents to Labor and Delivery 1 cm thick, -2 station. She received a single dose of Cytotec. Following this, she was 3 to 4 cm. Artificial rupture of membranes was performed. Clear fluid was noted. Pitocin was initiated. She received an epidural for pain control. She had an episode of tachycardia and feeling dizzy after pressing her bolus button for her epidural. This did resolve over the next 15 minutes. However, following this, meconium was noted, and heart tones had deep variable decelerations. At this point, she was 9 cm and shortly thereafter complete. DESCRIPTION OF PROCEDURE: With the patient in dorsal lithotomy position, the patient pushed over a 20- minute time period. The head was manually rotated from LOP to MARCI position, and then over the next 3 contractions with expulsive efforts, the head was delivered over the perineum with support with subsequent delivery of the infant's shoulders and body without any difficulty. The was bulb suctioned by nose and mouth, and after the cord had ceased to pulsate, it was doubly clamped and cut. The was handed to the mother in the presence of nurse attending delivery. The infant was a liveborn female, score of 8 and 9. Weight of 3460 g. Cord blood was collected for cord ABGs as well as routine cord blood sampling. Pitocin was initiated after delivery of the to assist with delivery of the placenta, which was delivered spontaneously, Schultze intact, with 2 vessels. Upon inspection of the pelvis and perineum, there were no periurethral, vaginal sidewall, cervical, or rectal lacerations. There was a small second-degree perineal laceration that was repaired with a running lock suture of 3-0 Vicryl for the vaginal mucosa, deep running suture of the perineum utilizing the same suture, and a subcuticular suture of the same for the skin. After delivery of the placenta, there was noted to be more blood than anticipated. The fundus was somewhat boggy, and with fundal massage, bleeding improved. However, prophylactically, methargen 0.2 mg IM was given. Following this, the uterus remained firm with minimal bleeding. Final sponge, needle, and instrument counts were correct. There were no known complications. Mother and baby are in LDR in good condition. DEBBIE / MIRNA /[id number]
--- NOTE | 2020-01-24 09:31 | PCM.PNPP ---
- General Info Date of Service: 01/31/20 Functional Status: Reports: Pain Controlled, Tolerating Diet, Ambulating, Urinating - Review of Systems General: Reports: No Symptoms HEENT: Reports: No Symptoms Pulmonary: Reports: No Symptoms Cardiovascular: Reports: No Symptoms Gastrointestinal: Reports: No Symptoms Genitourinary: Reports: No Symptoms Musculoskeletal: Reports: No Symptoms Skin: Reports: No Symptoms Neurological: Reports: No Symptoms Psychiatric: Reports: No Symptoms - General Info Date of Service: 01/24/20 - Patient Data Vital Signs - Most Recent: Last Vital Signs Temp 36.2 C 01/24/20 07:45 Pulse 84 01/24/20 07:45 Resp 16 01/24/20 07:45 BP 103/59 L 01/24/20 07:45 Pulse Ox 95 01/24/20 07:45 Weight - Most Recent: 73.028 kg Lab Results - Last 24 Hours: Laboratory Results - last 24 hr 01/23/20 01/24/20 Range/Units 18:27 05:25 Hgb 10.5 L (12.0-16.0) g/dL Hct 32.1 L (36.0-46.0) % Cord ABG pH 7.255 (7.18-7.38) Cord ABG Base Excess -5 (-10--2) Cord VBG pH 7.354 (7.25-7.45) Cord VBG Base Excess -4 (-10--2) Med Orders - Current: Current Medications Acetaminophen (Tylenol Extra Strength) 500 mg PO Q4H PRN PRN Reason: Pain Acetaminophen (Tylenol Extra Strength) 1,000 mg PO Q4H PRN PRN Reason: Pain Benzocaine/Menthol (Dermoplast Pain Relief 20%-0.5% [place]) 78 gm TOP ASDIRECTED PRN PRN Reason: Perineal Comfort Measure Last Admin: 01/23/20 21:00 Dose: 1 canister Bisacodyl (Dulcolax) 10 mg RECTAL ONETIME PRN PRN Reason: Constipation Docusate Sodium (Colace) 100 mg PO BID PRN PRN Reason: Constipation Emollient Ointment (Lansinoh Hpa) 0 gm TOP ASDIRECTED PRN PRN Reason: Sore Nipples Tranexamic Acid 1,000 mg/ (Sodium Chloride) 110 mls @ 660 mls/hr IV ONETIME PRN PRN Reason: Bleeding Ibuprofen (Motrin) 400 mg PO Q4H PRN PRN Reason: Pain Ibuprofen (Motrin) 800 mg PO Q6H PRN PRN Reason: Pain Last Admin: 01/23/20 21:00 Dose: 800 mg Witch Zaire (Tucks) 1 pad TOP ASDIRECTED PRN PRN Reason: comfort care Last Admin: 01/23/20 20:59 Dose: 1 tub Discontinued Medications Butorphanol Tartrate (Stadol) 1 mg IVPUSH Q1H PRN PRN Reason: Pain Carboprost Tromethamine (Hemabate Ds) 250 mcg IM ASDIRECTED PRN PRN Reason: Post Hemorrhage Lactated Ringer's (Ringers, Lactated) 1,000 mls @ 150 mls/hr IV ASDIRECTED CUATE Last Admin: 01/23/20 16:40 Dose: 150 mls/hr Oxytocin/Sodium Chloride (Oxytocin 30 Unit/500 Ml-Ns) 30 unit in 500 mls @ 999 mls/hr IV TITRATE CUATE Oxytocin/Sodium Chloride (Oxytocin 30 Unit/500 Ml-Ns) 30 unit in 500 mls @ 2 mls/hr IV TITRATE CUATE; Protocol Last Titration: 01/23/20 18:29 Dose: 500 munits/min, 500 mls/hr Tranexamic Acid 1,000 mg/ (Sodium Chloride) 110 mls @ 660 mls/hr IV ONETIME PRN PRN Reason: Bleeding Fentanyl/Bupivacaine HCl (Fentanyl/Bupivacaine/Ns 2 Mcg-0.125% 250 Ml) Confirm Administered Dose 250 mls @ as directed .ROUTE .[facility]-MED ONE Stop: 01/23/20 14:13 Lidocaine HCl (Xylocaine 1%) 50 ml INJECT ONETIME PRN PRN Reason: Laceration repair Methylergonovine Maleate (Methergine) 0.2 mg IM ASDIRECTED PRN PRN Reason: Post Hemorrhage Last Admin: 01/23/20 18:37 Dose: 0.2 mg Misoprostol (Cytotec) 200 mcg PO ONETIME PRN PRN Reason: Post Hemorrhage Misoprostol (Cytotec) 25 mcg VAG ONETIME PRN PRN Reason: Cervical Ripening Last Admin: 01/23/20 06:22 Dose: 25 mcg Misoprostol (Cytotec) 25 mcg VAG Q4H PRN PRN Reason: Cervical Ripening Nalbuphine HCl (Nubain) 10 mg IVPUSH Q1H PRN PRN Reason: Pain (severe 7-10) Ondansetron HCl (Zofran) 4 mg IVPUSH Q6H PRN PRN Reason: Nausea/Vomiting Sodium Chloride (Saline Flush) 10 ml FLUSH ASDIRECTED PRN PRN Reason: Keep Vein Open Sodium Chloride (Saline Flush) 2.5 ml FLUSH ASDIRECTED PRN PRN Reason: Keep Vein Open Sodium Chloride (Normal Saline) 10 ml IV ASDIRECTED PRN PRN Reason: IV Use Sterile Water (Sterile Water For Irrigation) 1,000 ml IRR ASDIRECTED PRN PRN Reason: delivery Terbutaline Sulfate (Brethine) 0.25 mg SUBCUT ASDIRECTED PRN PRN Reason: Tacysystole - Interaction Infant Disposition, : [place] in Room with Family Infant Interaction: Holding Infant Feeding: Bottle Fed Support Person: - Recovery Exam Fundal Tone: Firm Fundal Level: 1 Fingerbreadths Below Umbilicus Fundal Placement: Midline Lochia Amount: Moderate Lochia Color: Rubra/Red Perineum Description: Edematous Episiotomy/Laceration: Approximated Bladder Status: Nonpalpable Urinary Elimination: Voided - Exam General: Alert, Oriented Neck: Supple Lungs: Normal Respiratory Effort Extremities: Non-Tender, No Pedal Edema Skin: Warm Neurological: No New Focal Deficit Psy/Mental Status: Alert, Normal Affect, Normal Mood - Problem List & Annotations (1) Vaginal delivery SNOMED Code(s): 066812979 Code(s): O80 - ENCOUNTER FOR FULL-TERM UNCOMPLICATED DELIVERY Status: Acute Current Visit: No - Problem List Review Problem List Initiated/Reviewed/Updated: Yes - My Orders Last 24 Hours: My Active Orders 01/23/20 18:52 Patient Status [ADT] Routine May Shower [RC] ASDIRECTED Up ad Martha [RC] ASDIRECTED Vital Signs [RC] PER UNIT ROUTINE Acetaminophen [Tylenol Extra Strength] 1,000 mg PO Q4H PRN Acetaminophen [Tylenol Extra Strength] 500 mg PO Q4H PRN Benzocaine/Menthol [Dermoplast Pain Relief 20%-0.5% [place]] 78 gm TOP ASDIRECTED PRN Docusate Sodium [Colace] 100 mg PO BID PRN Ibuprofen [Motrin] 400 mg PO Q4H PRN Ibuprofen [Motrin] 800 mg PO Q6H PRN Lanolin [Lansinoh HPA] See Dose Instructions TOP ASDIRECTED PRN Tranexamic Acid [Cyklokapron] 1,000 mg Sodium Chloride 0.9% [Normal Saline] 100 ml IV ONETIME bisacodyL [Dulcolax] 10 mg RECTAL ONETIME PRN witch Zaire [Tucks] 1 pad TOP ASDIRECTED PRN Assess Lochia [WOMSER] Per Unit Routine Assess Uterine Involution [WOMSER] Per Unit Routine Perineal Care [OM.PC] Per Unit Routine Peripheral IV Discontinue [OM.PC] Routine Resuscitation Status Routine 01/23/20 Dinner Regular Diet [DIET] - Assessment Assessment:: PPD#1 after , stable moderate lochia, hemoglobin normal. Bottle feeding, minimal pain. - Plan Plan:: Would like to go home to day after 24 hours . Discharge instructions reviewed.
--- NOTE | 2020-01-24 10:06 | PCM48HPAN ---
Post Anesthesia Note - EVALUATION WITHIN 48HRS OF ANESTHETIC Vital Signs in Normal Range: Yes Patient Participated in Evaluation: Yes Respiratory Function Stable: Yes Airway Patent: Yes Cardiovascular Function Stable: Yes Hydration Status Stable: Yes Pain Control Satisfactory: Yes Nausea and Vomiting Control Satisfactory: Yes Mental Status Recovered: Yes Vital Signs: Last Vital Signs Temp 36.2 C 01/24/20 07:45 Pulse 84 01/24/20 07:45 Resp 16 01/24/20 07:45 BP 103/59 L 01/24/20 07:45 Pulse Ox 95 01/24/20 07:45 - COMMENTS/OBSERVATIONS Free Text/Narrative:: Patient doing well up walking around in room without any problems tending to baby. No questions or concerns related to anesthesia. No apparent complications noted.
[2020-01-24] MEDS: Witch Hazel Medicated Pads 40/Jar TOP PRN (17:49)
[2020-01-24] MEDS: Ibuprofen 800 MG Tab PO PRN (17:49)
[2020-01-24 20:07] VITALS: BP 100/66; PULSE 94
== END 2020-01-24 21:19 | disposition home or self-care (01) | DRG 807 ==
LOC: MW.OBCHECK 04:52 → MW.OB 04:54 → MW.OBCHECK 05:41 → MW.OB 05:41 → OBSVTOIN 18:52 → MW.OB 21:00 → MW.MS 01-24 14:41 → MW.OB 01-24 14:46
PROVIDERS: ADMIT Obstetrics & Gynecology; ATTEND Obstetrics & Gynecology
PROC: 10E0XZZ Delivery of Products of Conception, External Approach (ICD-10-PCS; principal; 2020-01-23)
PROC: 0KQM0ZZ Repair Perineum Muscle, Open Approach (ICD-10-PCS; 2020-01-23)
PROC: 3E0P7VZ Introduction of Hormone into Female Reproductive, Via Natural or Artificial Opening (ICD-10-PCS; 2020-01-23)
PROC: 3E033VJ Introduction of Other Hormone into Peripheral Vein, Percutaneous Approach (ICD-10-PCS; 2020-01-23)
PROC: 3E0R3BZ Introduction of Anesthetic Agent into Spinal Canal, Percutaneous Approach (ICD-10-PCS; 2020-01-23)
PROC: 10907ZC Drainage of Amniotic Fluid, Therapeutic from Products of Conception, Via Natural or Artificial Opening (ICD-10-PCS; 2020-01-23)
DX: O75.89 Other specified complications of labor and delivery (principal); Z37.0 Single live birth; Q27.0 Congenital absence and hypoplasia of umbilical artery; O70.1 Second degree perineal laceration during delivery; Z3A.39 39 weeks gestation of pregnancy; O77.0 Labor and delivery complicated by meconium in amniotic fluid; O76 Abnormality in fetal heart rate and rhythm complicating labor and delivery
CPT/HCPCS: 01967; 36415; 51702; 59025; 59409; 82803; 85014; 85018; 85027; 86592; 86593; 86850; 86900; 86901; A9270-GY; J2210; J2590; J7120